=== PATIENT | female | born 1975 | race African-American/Black ===

== ENCOUNTER 2020-01-10 19:46 | Emergency (ER) | payer OTHER ==
--- NOTE | 2020-01-10 21:07 | Emergency Department Report ---
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 Patient has a G-tube was dislodged at home. Family was able to put the G-tube back in. Patient having no issues at this time. - Related Data Allergies Allergy/AdvReac Type Severity Reaction Status Date / Time shellfish derived Allergy Anaphylaxis Verified 01/10/20 19:58 ED Review of Systems ROS: Stated complaint: FEEDING TUBE CAME OUT Other details as noted in HPI Comment: Unobtainable due to pts medical conditions ED Past Medical Hx - Past Medical History Previous Medical History?: Yes Hx CVA: Yes (Right side deficits/non verbal) - Surgical History Past Surgical History?: Yes Additional Surgical History: Feeding tube ED Physical Exam - General Limitations: Language Barrier, Physical Limitation General appearance: alert - Head Head exam: Present: atraumatic, normocephalic - GI/Abdominal GI/Abdominal exam: Present: soft. Absent: distended, tenderness, guarding, rebound, rigid ED Course Vital Signs 01/10/20 20:03 Temperature 98.1 F Pulse Rate 86 Respiratory 16 Rate Blood Pressure 127/93 [Left] O2 Sat by Pulse 96 Oximetry ED Medical Decision Making - Medical Decision Making We are able to do a G-tube study which shows that the lumen of the stomach and intestines filled with Gastrografin. Patient be discharged home. Critical care attestation.: If time is entered above; I have spent that time in minutes in the direct care of this critically ill patient, excluding procedure time. ED Disposition Clinical Impression: Gastrojejunostomy tube dislodgement Disposition: DC-01 TO HOME OR SELFCARE Is pt being admited?: No Does the pt Need Aspirin: No Condition: Stable Referrals: PRIMARY CARE, [Primary Care Provider] - 3-5 Days Time of Disposition: 21:07
--- NOTE | 2020-01-10 21:07 | XRay Report ---
G-TUBE STUDY SUPINE ABDOMEN BEFORE AND AFTER CONTRAST INJECTION INTO THE G-TUBE. 01/10/2020 INDICATION / CLINICAL INFORMATION: feeding tube placement varification. COMPARISON: None available. FINDINGS: Injected contrast outlines the gastric lumen and also fills the proximal duodenum. No extravasation. Signer Name: Jamir Marquis MD Signed: 01/10/2020 9:02 PM Workstation Name: [email or web address]
[2020-01-11 00:57] VITALS: BP 125/90
== END 2020-01-11 00:55 | disposition home or self-care (01) ==
LOC: ED 19:46
DX: T85.528A Displacement of other gastrointestinal prosthetic devices, implants and grafts, initial encounter (principal); Z86.73 Personal history of transient ischemic attack (TIA), and cerebral infarction without residual deficits; Z91.013 Allergy to seafood; X58.XXXA Exposure to other specified factors, initial encounter
CPT/HCPCS: 74018; 99283; Q9963